=== PATIENT | female | born 1970 | race Hispanic/Latino ===

== ENCOUNTER 2019-04-29 09:22 | Emergency (ER) | payer SELFPAY ==
[2019-04-29 09:36] LABS: BASOPHILS % (AUTO) 0.4 % (0.0-5.0); EOSINOPHILS % (AUTO) 1.8 % (0.0-8.0); HEMATOCRIT 40.6 % (36-48); LYMPHOCYTES % (AUTO) 41.1 % (21.0-51.0); MEAN CORPUSCULAR HEMOGLOBIN 29.4 pg (27.0-33.0); MEAN CORPUSCULAR HGB CONC 33.5 g/dL (32.0-36.0); MEAN CORPUSCULAR VOLUME 87.9 fL (79-99); MONOCYTES % (AUTO) 6.2 % (3.0-13.0); NEUTROPHILS % (AUTO) 50.3 % (40.0-77.0); PLATELET COUNT (AUTO) 240 K/uL (130-400); RED BLOOD CELL COUNT(AUTO) 4.62 MIL/uL (4.00-5.50); RED CELL DISTRIBUTION WIDTH 11.7 % (11.0-15.5); WHITE BLOOD COUNT (AUTO) 9.6 K/uL (4.8-10.8)
[2019-04-29] MEDS ORDERED: ASPIRIN 325 MG TABLET ONE (09:38)
[2019-04-29 09:44] LABS: CREATININE 0.7 mg/dL (0.5-1.5)
[2019-04-29 09:48] LABS: INR 0.97 (0.85-1.15); PARTIAL THROMBOPLASTIN TIME 25.5 SEC (26.3-35.5); PROTHROMBIN TIME 10.2 SEC (9.6-11.6)
[2019-04-29 09:50] LABS: ALBUMIN 3.7 g/dL (3.5-5.0); BILIRUBIN,TOTAL 0.3 mg/dL (0.2-1.0); TOTAL PROTEIN, SERUM 8.1 g/dL (6.0-8.3)
== END 2019-04-29 11:13 | disposition home or self-care (01) ==
LOC: EDH 09:22
DX: R07.89 Other chest pain (principal); I10 Essential (primary) hypertension; F32.9 Major depressive disorder, single episode, unspecified; K21.9 Gastro-esophageal reflux disease without esophagitis; Z90.710 Acquired absence of both cervix and uterus; Z88.6 Allergy status to analgesic agent; Z79.899 Other long term (current) drug therapy
CPT/HCPCS: 36415; 71045; 80053; 82550; 84484; 85025; 85610; 85730; 93005

== ENCOUNTER 2021-10-31 15:49 | Emergency (ER) | payer OTHER, SELFPAY ==
[~2021-10-31] VITALS: Ht 162.6 cm; Wt 90.7 kg
[2021-10-31 15:51] VITALS: BP 152/95
[2021-10-31 16:30] LABS: BASOPHILS % (AUTO) 0.5 % (0.0-5.0); EOSINOPHILS % (AUTO) 2.9 % (0.0-8.0); MEAN CORPUSCULAR HEMOGLOBIN 30.3 pg (27.0-33.0); MEAN CORPUSCULAR HGB CONC 33.8 g/dL (32.0-36.0); MEAN CORPUSCULAR VOLUME 89.6 fL (79-99); MONOCYTES % (AUTO) 6.3 % (3.0-13.0); NEUTROPHILS % (AUTO) 50.2 % (40.0-77.0); PLATELET COUNT (AUTO) 193 K/uL (130-400); RED BLOOD CELL COUNT(AUTO) 4.13 MIL/uL (4.00-5.50); RED CELL DISTRIBUTION WIDTH 12.4 % (11.0-15.5)
[2021-10-31] MEDS ORDERED: FAMOTIDINE 20MG VIAL IV ONE (16:30)
[2021-10-31] MEDS ORDERED: CYCLOBENZAPRINE HCL 10 MG TABLET PO ONE (16:30)
[2021-10-31] MEDS ORDERED: PROMETHAZINE HCL 25 MG/ML 1ML AMPULE IVPB SCH (16:30)
[2021-10-31] MEDS ORDERED: 0.9% NACL 500ML IV.SOLN 500 ML IV SCH (16:30)
[2021-10-31] MEDS ORDERED: DEXAMETHASONE 4 MG TAB PO SCH (16:30)
[2021-10-31] MEDS ORDERED: KETOROLAC 30MG VIAL (30MG/ML) IVP ONE (16:30)
[2021-10-31 16:45] LABS: APPEARANCE,URINE CLEAR (CLEAR); BILIRUBIN,URINE NEGATIVE (NEGATIVE); COLOR,URINE YELLOW (YELLOW); GLUCOSE, URINE (UA) NEGATIVE (NEGATIVE); KETONES,URINE NEGATIVE (NEGATIVE); LEUKOCYTE ESTERASE ,URINE NEGATIVE (NEGATIVE); NITRATE,URINE NEGATIVE (NEGATIVE); OCCULT BLOOD,URINE NEGATIVE (NEGATIVE); PH,URINE 5.5 (5.0-8.0); PROTEIN,URINE NEGATIVE (NEGATIVE); UROBILINOGEN,URINE 0.2 mg/dL (0.2-1.0)
[2021-10-31 16:46] LABS: CARBON DIOXIDE 25 mmol/L (21-32); CHLORIDE 106 mmol/L (101-111); CREATININE 0.7 mg/dL (0.5-1.5); GLOMERULAR FILTR. RATE CALC 94 mL/min (>60); GLUCOSE,RANDOM 88 mg/dL (70-105); SODIUM SERUM 139 mmol/L (136-145); UREA NITROGEN, BLOOD 14 mg/dL (7-18)
[2021-10-31 16:51] LABS: ALANINE AMINOTRANSFERASE 21 U/L (12-78); ALBUMIN 3.9 g/dL (3.5-5.0); ASPARTATE AMINOTRANSFERASE 20 U/L (10-37); TOTAL PROTEIN, SERUM 8.4 g/dL (6.0-8.3)
[2021-10-31 17:05] LABS: CRP QUANTITATIVE < 2.00 mg/L (0.00-9.0)
[2021-10-31] MEDS ORDERED: FAMO-136 PO (17:27)
[2021-10-31] MEDS ORDERED: CYCL10TA16 PO (17:27)
[2021-10-31] MEDS ORDERED: NAPR-1180 PO (17:27)
[2021-10-31] MEDS ORDERED: PRED20TA3 PO (17:27)
[2021-10-31] MEDS ORDERED: FAMC500T8 PO (17:27)
== END 2021-10-31 17:54 | disposition home or self-care (01) ==
LOC: EDH 15:49
DX: G44.209 Tension-type headache, unspecified, not intractable (principal); G51.0 Bell's palsy; I10 Essential (primary) hypertension; Z88.6 Allergy status to analgesic agent; Z98.890 Other specified postprocedural states
CPT/HCPCS: 99284; 96374; 70450; 96375; 96361; 84484; 80053; 85025; 86140; 81003; 36415; J7040; J3490; J2550; J1885; J8540

== ENCOUNTER 2022-01-13 01:13 | Emergency (ER) | payer OTHER ==
[~2022-01-13] VITALS: Ht 154.9 cm; Wt 90.3 kg
[~2022-01-13 01:13] MED LIST: CYCL10TA16 PO; FAMC500T8 PO; FAMO-136 PO; NAPR-1180 PO; PRED20TA3 PO
[2022-01-13 01:15] VITALS: BP 154/95
== END 2022-01-13 01:43 | disposition left against medical advice (07) ==
LOC: EDH 01:13
DX: R10.9 Unspecified abdominal pain (principal); Z53.21 Procedure and treatment not carried out due to patient leaving prior to being seen by health care provider

== ENCOUNTER 2022-11-09 06:38 | Emergency (ER) | payer OTHER ==
[~2022-11-09] VITALS: Ht 152.4 cm; Wt 92.5 kg
[2022-11-09 06:39] VITALS: BP 163/93
[2022-11-09] MEDS ORDERED: FAMOTIDINE 20MG TAB PO ONE (08:00)
[2022-11-09] MEDS ORDERED: DIAZEPAM 5 MG TABLET PO ONE (08:00)
[2022-11-09] MEDS ORDERED: KETOROLAC 10 MG TABLET PO SCH (08:00)
[2022-11-09 08:18] LABS: APPEARANCE,URINE CLEAR (CLEAR); BILIRUBIN,URINE NEGATIVE (NEGATIVE); COLOR,URINE COLORLESS (YELLOW); GLUCOSE, URINE (UA) NEGATIVE (NEGATIVE); KETONES,URINE NEGATIVE (NEGATIVE); LEUKOCYTE ESTERASE ,URINE NEGATIVE Leu/uL (NEGATIVE); NITRATE,URINE NEGATIVE (NEGATIVE); OCCULT BLOOD,URINE NEGATIVE (NEGATIVE); PH,URINE 5.5 (5.0-8.0); PROTEIN,URINE NEGATIVE (NEGATIVE); UROBILINOGEN,URINE 0.2 mg/dL (0.2-1.0)
[2022-11-09] MEDS ORDERED: CYCL10TA16 PO (09:40)
[2022-11-09] MEDS ORDERED: MELO-106 PO (09:40)
[2022-11-09 10:06] VITALS: PULSE 85; RESP 18; O2SAT 99
== END 2022-11-09 10:08 | disposition home or self-care (01) ==
LOC: EDH 06:38
DX: G89.29 Other chronic pain (principal); M54.50 Low back pain, unspecified; I10 Essential (primary) hypertension; E66.9 Obesity, unspecified; Z79.52 Long term (current) use of systemic steroids; Z79.624 Long term (current) use of inhibitors of nucleotide synthesis; Z88.5 Allergy status to narcotic agent; Z88.8 Allergy status to other drugs, medicaments and biological substances
CPT/HCPCS: 81003